=== PATIENT | male | born 1960 | race Caucasian/White ===

== ENCOUNTER 2021-05-25 14:31 | Emergency (ER) | payer OTHER ==
[2021-05-25] MEDS ORDERED: ULTRAM50 MG PO (15:55)
== END 2021-05-25 16:03 | disposition home or self-care (01) ==
LOC: FER 14:31
DX: M84.48XA Pathological fracture, other site, initial encounter for fracture (principal); F17.210 Nicotine dependence, cigarettes, uncomplicated; Z86.16 Personal history of COVID-19
CPT/HCPCS: 72110